=== PATIENT | male | born 1960 | race Caucasian/White ===

== ENCOUNTER 2018-08-07 11:39 | Outpatient (CLI) | payer OTHER ==
--- NOTE | 2018-08-07 13:44 | XRAY Report ---
Reason: PAIN IN RIGHT KNEE, PAIN IN LEFT KNEE Procedure Date: 08/07/2018 Accession Number: [id number] / [id number] Procedure: XR - Knee 3 View RT CPT Code: FULL RESULT: EXAM: RIGHT KNEE RADIOGRAPHY EXAM DATE: 08/07/2018 12:58 PM. CLINICAL HISTORY: PAIN IN RIGHT KNEE, PAIN IN LEFT KNEE. COMPARISON: KNEE 3 VIEW LT 08/07/2018 12:46 PM. TECHNIQUE: 2 views. FINDINGS: Bones: Normal. No fractures or bone lesions. Joints: Small joint effusion. No subluxation. Moderate narrowing of the medial weightbearing compartment. Soft Tissues: Normal. No soft tissue swelling. IMPRESSION: Small joint effusion and degenerative changes as above. RADIA
--- NOTE | 2018-08-07 14:00 | XRAY Report ---
Reason: PAIN IN RIGHT KNEE, PAIN IN LEFT KNEE Procedure Date: 08/07/2018 Accession Number: [id number] / [id number] Procedure: XR - Knee 3 View LT CPT Code: FULL RESULT: EXAM: LEFT KNEE RADIOGRAPHY EXAM DATE: 08/07/2018 12:57 PM. CLINICAL HISTORY: Pain in right knee, pain in left knee. COMPARISON: None. TECHNIQUE: 3 views. FINDINGS: Bones: Normal. No fractures or bone lesions. Joints: Mild narrowing of the weightbearing compartments. No joint effusion. No subluxation. Soft Tissues: Normal. No soft tissue swelling. IMPRESSION: Mild degenerative changes, less as compared to the right. RADIA
== END 2018-08-07 11:40 | disposition home or self-care (01) ==
LOC: DI 11:39
PROVIDERS: ATTEND Family Medicine
DX: M17.0 Bilateral primary osteoarthritis of knee (principal); M25.461 Effusion, right knee

== ENCOUNTER 2021-06-24 07:45 | Day surgery (SDC) | payer OTHER ==
[2021-06-24] MEDS ORDERED: LACTATED RINGERS 1,000 ML IV ONE ×2 (08:35→09:44)
--- NOTE | 2021-06-24 08:35 | ANESTHESIA ---
Pre-Anesthesia VS, & Labs - Diagnosis screening - Procedure colonoscopy Vital Signs: Temp Pulse Resp BP Pulse Ox 36.5 C 60 19 127/96 H 99 06/24/21 08:05 06/24/21 08:05 06/24/21 08:05 06/24/21 08:05 06/24/21 08:05 Height: 5 ft 9 in Weight (kg): 91.6 kg Body Mass Index: 29.8 BMI Classification: Overweight - NPO >8 hours Anes History & Medical History - Anesthetic History Anesthesia Complications: reports: No previous complications Family history of Anesthesia Complications: Denies Family history of Malignant Hyperthermia: Denies - Medical History Cardiovascular: reports: None Pulmonary: reports: None Gastrointestinal: reports: None Urinary: reports: None Neuro: reports: None Musculoskeletal: reports: Rheumatoid arthritis Endocrine/Autoimmune: reports: None Blood Disorders: reports: None Skin: reports: None Smoking Status: Current every day smoker Exam General: Alert, Oriented x3, Cooperative Dental: WNL Mouth Openin Fingerbreadth Neck Mobility: Normal Mallampati classification: II Thyromental Distance: 4-6 cm Respiratory: Lungs clear Cardiovascular: Regular rate Abdomen: Normal bowel sounds Plan Anesthesia Type: Total IV Consent for Procedure(s) Verified and Reviewed: Yes Code Status: Attempt Resuscitation ASA classification: 2-Mild systemic disease Is this case an emergency?: No
[2021-06-24] MEDS ORDERED: PROPOFOL 500 MG/50 ML 500 MG/50 ML VIAL ONE (08:36)
[2021-06-24 10:11] VITALS: BP 133/86
--- NOTE | 2021-06-24 12:43 | ANESTHESIA POST OP EVALUATION ---
Anesthesia Post Eval - Post Anesthesia Eval Vitals: Last Vital Signs Temp 36.5 C 06/24/21 10:09 Pulse 56 L 06/24/21 10:09 Resp 19 06/24/21 10:09 BP 133/86 H 06/24/21 10:09 Pulse Ox 100 06/24/21 10:09 CV Function Including HR & BP: Stable Pain Control: Satisfactory Nausea & Vomiting: Negative Mental Status: Baseline Respiratory Status: Airway Patent Hydration Status: Satisfactory Anesthesia Complications: None
== END 2021-06-24 07:46 | disposition home or self-care (01) ==
LOC: SDS 07:45
PROVIDERS: ATTEND Surgery
PROC: 0DBL8ZZ Excision of Transverse Colon, Via Natural or Artificial Opening Endoscopic (ICD-10-PCS; 2021-06-24)
PROC: 0DBP8ZZ Excision of Rectum, Via Natural or Artificial Opening Endoscopic (ICD-10-PCS; 2021-06-24)
PROC: 0DBN8ZZ Excision of Sigmoid Colon, Via Natural or Artificial Opening Endoscopic (ICD-10-PCS; 2021-06-24)
PROC: 0DBK8ZZ Excision of Ascending Colon, Via Natural or Artificial Opening Endoscopic (ICD-10-PCS; principal; 2021-06-24 09:00)
DX: Z12.11 Encounter for screening for malignant neoplasm of colon (principal); D12.3 Benign neoplasm of transverse colon; D12.2 Benign neoplasm of ascending colon; D12.5 Benign neoplasm of sigmoid colon; K62.1 Rectal polyp; K64.8 Other hemorrhoids; F17.200 Nicotine dependence, unspecified, uncomplicated
CPT/HCPCS: 45380; 45385; J7120

== ENCOUNTER 2023-01-12 10:31 | Outpatient (CLI) | payer OTHER ==
--- NOTE | 2023-01-14 16:10 | Ultrasound Report ---
ULTRASOUND OF LEFT AXILLA: 01/12/2023 CLINICAL: Palpable left axilla lump. No prior exams were available for comparison. Color flow and real-time ultrasound of the left axilla were performed. Martin scale images of the real -time examination were reviewed. There is a 7.5 cm x 5.9 cm x 4.9 cm enlarged lymph node in the left axillary tail. This enlarged lym ph node is hypoechoic with no fatty hilum. This correlates as palpated. Color flow imaging demonstr ates that there is vascularity present. IMPRESSION: SUSPICIOUS OF MALIGNANCY The 7.5 cm x 5.9 cm x 4.9 cm enlarged lymph node is suspicious of malignancy. Suspect lymphoma. An ultrasound guided biopsy is recommended. Exam findings were discussed with the patient by Dr. Elizalde. This exam was interpreted at Station ID: [id number]. Electronically Signed By: Gurpreet Mirza M.D. slc/:01/12/2023 12:33:51 Ultrasound BI-RADS: 4 Suspicious for malignancy BI-RADS CATEGORY: (4) - 4 Biopsy [id number] Immediate follow-up LATERALITY: (L)
== END 2023-01-12 10:32 | disposition home or self-care (01) ==
LOC: DI 10:31
PROVIDERS: ATTEND Registered Nurse
DX: R59.0 Localized enlarged lymph nodes (principal)

== ENCOUNTER 2023-02-18 11:05 | Outpatient (CLI) | payer OTHER ==
[2023-02-18] MEDS ORDERED: iohexoL-300 100 ML VIAL IVP ONE (15:23)
[2023-02-18] MEDS ORDERED: BARIUM SULFATE 1,900 ML BOTTLE RC ONE (15:24)
--- NOTE | 2023-02-18 15:38 | CT Report ---
PROCEDURE: CHEST W INDICATIONS: MALIGNANT LYMPHOMA CONTRAST: 100ml omni 300 TECHNIQUE: After the administration of intravenous contrast, 1 mm axial images were acquired from the pulmonary apices through the posterior costophrenic angles. Axial 5 mm soft tissue kernel reconstructions were performed as well as 8 mm axial MIP and coronal and sagittal 5 mm reformations. For radiation dose reduction, the following was used: automated exposure control, adjustment of mA and/or kV according to patient size. COMPARISON: Same day CT abdomen pelvis with IV contrast. Left axillary biopsy ultrasound 01/24/2023. Left axillary ultrasound 01/12/2023. FINDINGS: Image quality: Excellent. Lungs and pleura: Moderate emphysematous change. Mild honeycombing at the lower lobes. Left upper lob e fissural pulmonary nodule measuring 0.3 cm, (3/17). No mass. Central airways are clear. The pleural fusion. No pneumothorax. Mediastinum: Heart size is normal. No pericardial effusion. No large vessel abnormality. Small right hilar lymph node measuring 1.1 cm, (2/25). Chest wall and lower neck: Thyroid is unremarkable. No supraclavicular adenopathy by size. Left axill charanjit lymph node measuring 4.5 x 1.8 cm, (2/19). This measures 4.6 cm in the craniocaudal dimension, (5 /18). (This previously measured 7.7 x 6.8 x 3.7 cm on ultrasound 01/24/2023) Bones: No aggressive osseous abnormality. Upper Abdomen: See separately dictated CT abdomen pelvis. IMPRESSION: 1. Left axillary lymph node measuring 1.8 cm short axis diameter is decreased compared to ultrasound 01/24/2023. 2. Right hilar node measuring 1.1 cm. 3. Mild pulmonary fibrosis. Moderate emphysematous change. Reviewed by: Gurpreet Mirza MD on 02/18/2023 3:36 PM PDT Approved by: Gurpreet Mirza MD on 02/18/2023 3:36 PM PDT Station ID: [id number]
--- NOTE | 2023-02-18 15:42 | CT Report ---
PROCEDURE: ABDOMEN/PELVIS W INDICATIONS: MALIGNANT LYMPHOMA CONTRAST: 100ml omni 300 TECHNIQUE: After the administration of oral and intravenous contrast, 5 mm thick sections acquired from the diap hragms to the symphysis. 5 mm thick coronal and sagittal reformats were acquired. For radiation dos e reduction, the following was used: automated exposure control, adjustment of mA and/or kV accordin g to patient size. COMPARISON: Same-day CT chest. FINDINGS: Image quality: Excellent. Lung bases and heart: See separately dictated same-day CT chest. Pulmonary fibrosis and emphysematous change. Gynecomastia. Liver: No solid mass. Gallbladder and biliary tree: No radiopaque stones or wall thickening. No biliary dilation. Spleen: No splenomegaly. Spleen measures 6.4 cm. Pancreas: No pancreatic ductal dilation. Adrenals: No adrenal nodule. Kidneys and ureters: No hydronephrosis. No renal cystic lesion which requires follow up. No solid mas s. Bowel and peritoneum: No bowel distension. No pathologic free fluid. Diverticulosis without evidence of diverticulitis. Normal appendix. Lymph nodes: No central or retroperitoneal adenopathy. Vessels: No infrarenal aortic aneurysm. Circumaortic left renal vein. PELVIS Reproductive organs: Prostatomegaly. Bladder: No abnormal wall thickening, accounting for underdistention. Pelvic lymph nodes: No pelvic adenopathy by size criteria. Bones: No aggressive osseous abnormality. Other: No significant ventral or inguinal hernia. IMPRESSION: No mass. No adenopathy in the abdomen or pelvis. No splenomegaly. Reviewed by: Gurpreet Mirza MD on 02/18/2023 3:41 PM PDT Approved by: Gurpreet Mirza MD on 02/18/2023 3:41 PM PDT Station ID: [id number]
== END 2023-02-18 11:06 | disposition home or self-care (01) ==
LOC: DI 11:05
PROVIDERS: ATTEND Registered Nurse
DX: C85.90 Non-Hodgkin lymphoma, unspecified, unspecified site (principal); J84.10 Pulmonary fibrosis, unspecified; J43.9 Emphysema, unspecified
CPT/HCPCS: 71260; 74177; A9270; Q9967

== ENCOUNTER 2023-02-21 09:51 | Day surgery (SDC) | payer OTHER ==
[2023-02-21] MEDS ORDERED: LACTATED RINGERS 1,000 ML IV ONE (10:21)
[2023-02-21] MEDS ORDERED: LIDOCAINE 1%-EPI 1:100000 20 ML MDV ONE (10:34)
[2023-02-21] MEDS ORDERED: BUPIVACAINE 0.5% PF 10 ML VIAL ONE (10:34)
--- NOTE | 2023-02-21 10:51 | ANESTHESIA ---
Pre-Anesthesia VS, & Labs - Diagnosis B-Cell lymphoma - Procedure Placement of port Vital Signs: Temp Pulse Resp BP Pulse Ox O2 Flow Rate 36.2 C L 56 L 19 122/90 H 96 02/21/23 10:22 02/21/23 10:22 02/21/23 10:22 02/21/23 10:22 02/21/23 10:22 Height: 5 ft 9 in Weight (kg): 88.45 kg Body Mass Index: 28.8 BMI Classification: Overweight - NPO >8 hours Home Medications and Allergies Home Medications: Ambulatory Orders Prednisone [Manfred] 10 mg PO DAILY 02/18/23 Adalimumab [Humira Pen] 0.8 ml INJ UD 06/24/21 metHOTREXate sodium [Trexall] 1 tab DAILY 06/24/21 Prednisone [Manfred] 10 mg PO DAILY 02/18/23 Allergies/Adverse Reactions: Allergies Allergy/AdvReac Type Severity Reaction Status Date / Time No Known Drug Allergies Allergy Verified 02/21/23 10:24 Anes History & Medical History - Anesthetic History Anesthesia Complications: reports: No previous complications - Medical History Cardiovascular: reports: None Pulmonary: reports: Other (reports snoring) Gastrointestinal: reports: None Urinary: reports: None Neuro: reports: None Musculoskeletal: reports: Rheumatoid arthritis Endocrine/Autoimmune: reports: None Blood Disorders: reports: None Skin: reports: None Smoking Status: Current every day smoker (1pk per day for 45 years) Psychosocial: reports: Alcohol History of Cancer?: Yes (B Cell lymphoma) - Surgical History General: reports: Colonoscopy Eyes Ears Nose Throat (EENT): reports: Tonsil/Adenoidectomy Exam General: Alert, Oriented x3, Cooperative, No acute distress Dental: Poor dentition Mouth Openin Fingerbreadth Neck Mobility: Normal Mallampati classification: III Thyromental Distance: 4-6 cm Mental/Cognitive Status: Alert/Oriented X3, Normal for patient Plan Anesthesia Type: General, Total IV Consent for Procedure(s) Verified and Reviewed: Yes Code Status: Attempt Resuscitation ASA classification: 3-Severe systemic disease Is this case an emergency?: No
[2023-02-21] MEDS ORDERED: SODIUM CHLORIDE 0.9% 100 ML BAG IV ONE (11:00)
[2023-02-21] MEDS ORDERED: BUPIVACAINE 0.5% PF 30 ML VIAL SUBQ ONE (11:00)
[2023-02-21] MEDS ORDERED: LIDOCAINE MPF 2%-EPI 1:200000 20 ML VIAL SUBQ ONE (11:00)
[2023-02-21] MEDS ORDERED: PROPOFOL 500 MG/50 ML 500 MG/50 ML VIAL ONE (11:07)
[2023-02-21] MEDS ORDERED: fentaNYL 100 MCG/2 ML VIAL ONE (11:08)
[2023-02-21] MEDS ORDERED: MIDAZOLAM 2 MG/2 ML VIAL ONE (11:08)
[2023-02-21] MEDS ORDERED: ceFAZolin 2 GM VIAL ONE (11:15)
[2023-02-21] MEDS ORDERED: ACETAMINOPHEN 500 MG TABLET PO ONE (11:15)
[2023-02-21] MEDS ORDERED: ACETAMINOPHEN 500 MG TABLET PO PRN (12:44)
[2023-02-21] MEDS ORDERED: oxyCODONE 5 MG TABLET PO PRN (12:44)
[2023-02-21] MEDS ORDERED: IBUPROFEN 600 MG TABLET PO PRN (12:44)
[2023-02-21] MEDS ORDERED: ONDANSETRON 4 MG/2 ML VIAL IVP PRN (12:44)
--- NOTE | 2023-02-21 12:49 | OPERATIVE REPORT ---
Operative Report - General Procedure Date: 02/21/23 Planned Procedure: Portacatheter placement Pre-Op Diagnosis: Lymphoma Procedure Performed: Portacatheter placement, right internal jugular vein, with ultrasound and fluoroscopy guidance Post Op Diagnosis: Lymphoma - Procedure Note Primary Surgeon: Dasha Luna MD Anesthesia Provider: Dylan Alba CRNA Anesthesia Technique: General LMA, Local Estimated Blood Loss (mL): 5 Indications: The patient was diagnosed with lymphoma. His medical oncologist has requested a portacatheter for chemotherapy administration. I discussed the risks, benefits, and alternatives of portacatheter placement with the patient prior to his procedure today. Risks include but are not limited to bleeding, infection, damage to surrounding structures including pneumothorax, dysfunction or infection of the port requiring removal, and the need for further surgeries or procedures. The patient voiced understanding, his questions were answered, and he wished to proceed. A consent was signed by the patient prior to surgery. Findings: 1. Patent right internal jugular vein 2. Portacatheter flushes and draws easily 3. Portacatheter loaded with 1.5 mL 1000 units/mL heparin Complications: None - Other Other Information/Narrative: The patient was taken to the operative suite and placed in the supine position preoperative ERAS medications given. Preoperative antibiotics given. MAC anesthesia was induced to the appropriate level of consciousness. An ultrasound was used to verify the right internal jugular vein was widely patent. The patien t was then prepped and draped in the usual, sterile fashion. Next, a sterile ultrasound probe was used to visualize the right internal jugular vein local anesthetic was injected into the skin and subcutaneous tissues overlying this vessel and an 11 blade scalpel was used to make a small skin kaylah. Next, under direct ultrasound guidance, a Cook needle was used to gain access to the right internal jugular vein. This was successful on the first attempt. There was excellent return of dark red nonpulsatile blood. A guidewire was passed through the Cook needle without resistance. Fluoroscopy was used to verify the position of the wire. Ultrasound was also used to verify the position of the wire. Next, attention was turned to the chest. The location was chosen on the right anterior chest wall for the portacatheter to sit. The skin and subcutaneous tissues in this area were anesthetized with local as was the path which the catheter would follow up to the neck incision. A 15 blade scalpel was used to make a 2 cm incision in the which was carried down through the skin and subcutaneous tissues to the level of the clavipectoral fascia. A pocket was made with blunt dissection to accommodate the port. Port easily fit within the pocket. 2 interrupted sutures of 3-0 PDS were placed through the port to tack it to the clavipectoral fascia. These were tied into place and then the port was tunneled from the inferior chest wall incision to the superior neck incision. Next, the catheter was cut to the appropriate length, 22cm, under direct fluoroscopic guidance. A dilator and sheath were passed over the guidewire under direct fluoroscopic guidance and the dilator and guidewire were removed leaving only the breakaway sheath in place. The catheter was passed through the sheath and the sheath was broken away. The catheter was the only thing that remained within the vessel. Fluoroscopy confirmed that the catheter tip was in good position and that there were no kinks at the neck. The catheter flushed and cheryl easily. Next, 3-0 Vicryl was used in an interrupted fashion to reapproximate the deep dermal tissues at the chest incision. Then, 4-0 Monocryl was used in an interrupted subcuticular fashion to reapproximate the skin at the neck incision and in a running subcuticular fashion to reapproximate the skin at the chest incision. A sterile dressing of skin glue was placed. The port was flushed with 1.5 mL 1000 units/mL heparinized saline. The patient tolerated the procedure well and there were no complications. A postoperative chest x-ray is pending at this time.
--- NOTE | 2023-02-21 12:57 | XRAY Report ---
PROCEDURE: OR Port-A-Cath INDICATIONS: PORT PLACEMENT CONTRAST: None FLUORO TIME: 0.1 MIN TECHNIQUE: Real time fluoroscopy was performed of the thorax. COMPARISON: None. FINDINGS: Fluoroscopic guidance utilized for a right chest wall port placement. The tip projects over the low S VC. IMPRESSION: Fluoroscopic guidance. Reviewed by: Juan R Coronado on 02/21/2023 12:56 PM PDT Approved by: Juan R Coronado on 02/21/2023 12:56 PM PDT Station ID: [id number]
[2023-02-21 13:04] VITALS: BP 112/78; O2SAT 98
--- NOTE | 2023-02-21 13:08 | XRAY Report ---
PROCEDURE: Chest for Line Placement INDICATIONS: PAC placement TECHNIQUE: One view of the chest was acquired. COMPARISON: None. FINDINGS: Surgical changes and devices: Right chest wall port tip projects over the mid SVC. Lungs and pleura: No pleural effusions or pneumothorax. Lungs are clear. Mediastinum: Mediastinal contours appear normal. Heart size is normal. Bones and chest wall: No suspicious bony lesions. Overlying soft tissues appear unremarkable. IMPRESSION: Right chest wall port tip projects over the mid SVC. No pneumothorax. Reviewed by: Juan R Coronado on 02/21/2023 1:07 PM PDT Approved by: Juan R Coronado on 02/21/2023 1:07 PM PDT Station ID: [id number]
[2023-02-21] MEDS ORDERED: oxyCODONE 5 MG TABLET ONE (13:15)
--- NOTE | 2023-02-21 19:57 | ANESTHESIA POST OP EVALUATION ---
Anesthesia Post Eval - Post Anesthesia Eval Vitals: Last Vital Signs Temp 36.1 C L 02/21/23 12:36 Pulse 77 02/21/23 12:56 Resp 14 02/21/23 12:56 BP 112/78 02/21/23 12:56 Pulse Ox 98 02/21/23 12:56 O2 Flow Rate CV Function Including HR & BP: Stable Pain Control: Satisfactory Nausea & Vomiting: Negative Mental Status: Baseline Respiratory Status: Airway Patent Hydration Status: Satisfactory Anesthesia Complications: None
== END 2023-02-21 09:52 | disposition home or self-care (01) ==
LOC: SDS 09:51
PROVIDERS: ATTEND Surgery
DX: C85.10 Unspecified B-cell lymphoma, unspecified site (principal); G47.33 Obstructive sleep apnea (adult) (pediatric); F17.210 Nicotine dependence, cigarettes, uncomplicated
CPT/HCPCS: 36561; A9270; C1788; J7120

== ENCOUNTER 2023-02-22 14:20 | Outpatient (CLI) | payer OTHER | END 2023-02-22 14:21 | disposition home or self-care (01) | LOC: DI 14:20 | PROVIDERS: ATTEND Internal Medicine | DX: Z01.810 Encounter for preprocedural cardiovascular examination (principal); C83.34 Diffuse large B-cell lymphoma, lymph nodes of axilla and upper limb | CPT/HCPCS: 93306 ==

== ENCOUNTER 2023-04-05 16:08 | Emergency (ER) | payer OTHER ==
--- NOTE | 2023-04-05 17:04 | ED Physician Documentation ---
PD HPI NECK PAIN - Stated complaint Stated Complaint: NECK PX - Chief complaint Chief Complaint: General - History obtained from History obtained from: Patient - History of Present Illness Timing - onset: How many days ago (2-3) Timing - duration: Days (2-3) Timing - details: Gradual onset Location: Right, Other (area of pain is anterior/lateral right neck along SCM muscle area.) Quality: Pain, Aching Associated symptoms: No: Fever, Weakness, Numbness Worsened by: Movement, Palpation Contributing factors: Other (has right chest port in place about 3 months.). No: Lifting, Twisting, Trauma Similar symptoms before: Has not had sx before Recently seen: Clinic (03/23/23 for chemo infusion. DUe again next week.) Review of Systems Constitutional: denies: Fever, Chills Eyes: denies: Decreased vision Neurologic: denies: Focal weakness, Numbness PD PAST MEDICAL HISTORY - Past Medical History Past Medical History: Yes Cardiovascular: Hypertension Respiratory: Other Neuro: None Endocrine/Autoimmune: None GI: None : None HEENT: None Psych: None Musculoskeletal: Rheumatoid arthritis Derm: None - Past Surgical History Past Surgical History: Yes General: Colonoscopy HEENT: Tonsil/Adenoidectomy - Present Medications Home Medications: Ambulatory Orders Medication Instructions Recorded Confirmed Adalimumab [Humira Pen] 0.8 ml INJ UD 06/24/21 03/23/23 metHOTREXate sodium [Trexall] 1 tab DAILY 06/24/21 02/16/23 Prednisone [Manfred] 10 mg PO DAILY 02/18/23 03/23/23 Ondansetron [Ondansetron Odt] 8 mg PO Q8H PRN 30 Days #90 tab 02/23/23 Pegfilgrastim [Neulasta] 6 mg SQ DAILY #1 each 02/23/23 Prochlorperazine [Compazine] 5 mg PO Q6H PRN 30 Days #90 tablet 02/23/23 Apixaban [Eliquis] 10 mg PO BID 7 Days #28 tablet 04/05/23 - Allergies Allergies/Adverse Reactions: Allergies Allergy/AdvReac Type Severity Reaction Status Date / Time No Known Drug Allergies Allergy Verified 04/05/23 16:36 - Social History Does the pt smoke?: No Smoking Status: Never smoker Does the pt drink ETOH?: No Does the pt have substance abuse?: No PD ED PE NORMAL - Vitals Vital signs reviewed: Yes - General General: Alert and oriented X 3, No acute distress, Well developed/nourished - HEENT HEENT: PERRL, EOMI, Other (no edema of the face. ) - Neck Neck: Supple, no meningeal sign, No adenopathy, No bruit, Other (right neck with subcut IV line palpable. Port right chest wall without redness/swelling/tender. Right side of neck with mild adenopathy. No abscess/redness. ) - Cardiac Cardiac: RRR, No murmur - Respiratory Respiratory: Clear bilaterally - Derm Derm: Normal color, Warm and dry - Neuro Neuro: Alert and oriented X 3, kit assembler 2-12 intact, No motor deficit, No sensory deficit, Normal speech Results - Vitals Vitals: Vital Signs - 24 hr 04/05/23 04/05/23 04/05/23 16:32 19:04 19:07 Temperature 37 C Heart Rate 74 66 Respiratory 15 19 17 Rate Blood Pressure 135/88 H 145/91 H O2 Saturation 97 99 Oxygen O2 Source Room air - Labs Labs: Laboratory Tests 04/05/23 04/05/23 17:31 17:31 WBC 6.3 RBC 3.83 L Hgb 12.0 L Hct 36.5 L MCV 95.3 H MCH 31.3 H MCHC 32.9 RDW 13.3 Plt Count 402 MPV 9.7 Neut # (Auto) 2.6 Lymph # (Auto) 2.0 Russell # (Auto) 1.3 H Eos # (Auto) 0.1 Baso # (Auto) 0.1 Absolute Nucleated RBC 0.00 Nucleated RBC % 0.0 Sodium 137 Potassium 3.8 Chloride 102 Carbon Dioxide 29 Anion Gap 6.0 BUN 9 Creatinine 0.7 Estimated GFR (MDRD) 114 Glucose 109 H Calcium 9.4 Magnesium 1.9 Total Bilirubin 0.2 AST 9 L ALT 14 Alkaline Phosphatase 64 Total Protein 7.0 Albumin 4.3 Globulin 2.7 Albumin/Globulin Ratio 1.6 Lipase 12 - Rads (name of study) Right upper ext US Relevant Findings:: Other (US Tech - prelim showing large right IJ thrombus. ) PD Medical Decision Making - ED course Complexity details: reviewed results, re-evaluated patient, considered differential (Patient with pain on the right side of the neck and medial clavicle area. No redness of the skin. No visual changes or focal weaknesses. He called his oncologist however and there was concern for infection or clot and referred the patient to the ER.), d/w patient, d/w interventional sale consultant (Pt's Oncology is Sung Arnett, will talk with oncall. Dispatcher [employer] contacted back and agreed on Apixiban 10 mg bid x 7 days then to change to 5 mg BID. ) Reviewed Lab Results: basic labs are okay. Normal WBC. US showing right IJ thrombus. ED course: The patient has a history of lymphoma some of which is on the right side of the neck but had been improving. He is undergoing chemotherapy every 21 days via a port in the right chest to the right IJ apparently or supraclavicular. He has had some feeling of swelling and tenderness to the area. No redness at the sign of the port. Last last chemotherapy 2 weeks ago he states that he did have some difficulty drawing blood out from the port but were able to infuse. He denies swelling or pain in the right arm or any numbness in the right arm. No fever or chills. We can get CBC and blood cultures from the port line to assess for infection there. No skin signs of infection. Will get an ultrasound of the right subclavian and upper extremity to look for clots at the site. Departure - Departure Disposition: 01 Home, Self Care Clinical Impression: Acute internal jugular vein thrombosis Qualifiers: Laterality: right Qualified Code(s): I82.C11 - Acute embolism and thrombosis of right internal jugular vein Condition: Stable Record reviewed to determine appropriate education?: Yes Instructions: ED DVT Follow-Up: SUNG ARNETT MD [Provider Admit Priv/Credential] - Prescriptions: Apixaban [Eliquis] 10 mg PO BID 7 Days #28 tablet Comments: You do have some clot formation in the internal jugular around the catheter. Typically the catheter will be kept in place while we treat the clot with the anticoagulant medication. Commonly used is apixaban (Eliquis). It is initiated at 10 mg twice a day for 7 days and then continued at 5 mg twice a day after that. I wrote prescription for the first 7 days worth. Presumably would be seen next week or talk with your oncologist about the further continuation of the medication prescription after that. Call your oncologist tomorrow to update. I have a call placed out for them tonight to give the results but they have not called back as yet. I sent a prescription to your preferred pharmacy but you were given a first dose here in the ER for this evening. I would suggest Tylenol 650 mg 4 times daily for pain. You can use some warm towels or compresses to the area to to help soften the blood clot a little bit and help resorption. Forms: PCP List Discharge Date/Time: 04/05/23 19:34
[2023-04-05 17:44] LABS: BASOPHILS # (AUTO) 0.1 10^3/uL (0.0-0.1); BASOPHILS % (AUTO) 1.8 %; EOSINOPHILS # (AUTO) 0.1 10^3/uL (0.0-0.7); EOSINOPHILS % (AUTO) 2.2 %; HCT - HEMATOCRIT 36.5 % (42.0-52.0); MEAN CORPUSCULAR HEMOGLOBIN 31.3 pg (27.0-31.0); MEAN CORPUSCULAR HGB CONC 32.9 g/dL (32.0-36.0); MEAN CORPUSCULAR VOLUME 95.3 fL (80.0-94.0); MEAN PLATELET VOLUME 9.7 fL (7.4-11.4); MONOCYTES # (AUTO) 1.3 10^3/uL (0.0-1.0); MONOCYTES % (AUTO) 20.3 %; NEUTROPHILS # (AUTO) 2.6 10^3/uL (1.5-6.6); NEUTROPHILS % (AUTO) 42.1 %; PLT - PLATELET COUNT 402 10^3/uL (130-450); RED BLOOD COUNT 3.83 10^6/uL (4.70-6.10); RED CELL DISTRIBUTION WIDTH 13.3 % (12.0-15.0); WHITE BLOOD COUNT 6.3 x10^3/uL (4.8-10.8)
[2023-04-05 17:57] LABS: ALBUMIN 4.3 g/dL (3.2-5.5); ALBUMIN/GLOBULIN RATIO 1.6 (1.0-2.2); BILIRUBIN,TOTAL 0.2 mg/dL (0.2-1.0); CALCIUM 9.4 mg/dL (8.5-10.3); CREATININE 0.7 mg/dL (0.6-1.3); MAGNESIUM 1.9 mg/dL (1.7-2.3); POTASSIUM 3.8 mmol/L (3.5-4.5)
[2023-04-05] MEDS ORDERED: APIXABAN 5 MG TABLET PO STA (18:58)
[2023-04-05 19:13] VITALS: BP 145/91; O2SAT 99
--- NOTE | 2023-04-05 19:31 | Ultrasound Report ---
PROCEDURE: Duplex Ext Veins Right INDICATIONS: right side neck shoulder pain, right chest port TECHNIQUE: Real-time imaging, as well as color and pulse Doppler interrogation, were performed of the lower extr emity deep veins from the inguinal ligament to the popliteal fossa. Attempted visualization of the ca lf veins was performed. COMPARISON: None. FINDINGS: Deep venous thrombosis of the left internal jugular vein, which is noncompressible. The por t inserts within the thrombosed segment. Subclavian vein, axillary, brachial, basilic and cephalic ve ins are clear from thrombus. IMPRESSION: Deep venous thrombosis of the right internal jugular vein. Agree with preliminary interpretation discussed between the sonographic technologist and Dr. Reyes. Reviewed by: Juan R Coronado on 04/05/2023 7:29 PM [facility] Approved by: Juan R Coronado on 04/05/2023 7:29 PM [facility] Station ID: [id number]
== END 2023-04-05 19:34 | disposition home or self-care (01) ==
LOC: ED 16:08
DX: I82.C11 Acute embolism and thrombosis of right internal jugular vein (principal); C85.91 Non-Hodgkin lymphoma, unspecified, lymph nodes of head, face, and neck; Z79.899 Other long term (current) drug therapy
CPT/HCPCS: 36415; 80053; 83690; 83735; 85025; 87040; 93971; 99283; 99285; A9270

== ENCOUNTER 2023-04-14 11:23 | Day surgery (SDC) | payer OTHER ==
--- NOTE | 2023-04-14 13:00 | XRAY Report ---
PROCEDURE: Chest for Line Placement INDICATIONS: PICC LINE PLACEMENT TECHNIQUE: One view of the chest was acquired. COMPARISON: 02/21/2023. FINDINGS: Surgical changes and devices: Right chest Port-A-Cath line has retracted significantly, and now like ly coils in the inferior aspect of the right internal jugular vein. Left arm PICC line tip projects t o the superior vena cava. Lungs and pleura: No pleural effusions or pneumothorax. Lungs are clear. Mediastinum: Mediastinal contours appear normal. Heart size is normal. Bones and chest wall: No suspicious bony lesions. Overlying soft tissues appear unremarkable. IMPRESSION: 1. Port-A-Cath has retracted significantly, and appears to coil in the right internal jugular vein. 2. Interval PICC line placement with its tip projecting to the superior vena cava. Reviewed by: Lj Salazar MD on 04/14/2023 12:59 PM PST Approved by: Lj Salazar MD on 04/14/2023 12:59 PM PST Station ID: [id number]
[2023-04-14 13:02] VITALS: BP 130/79; O2SAT 97
--- NOTE | 2023-04-14 14:19 | ANESTHESIA PROCEDURE NOTE ---
Anesth Central Line Template - Central Line Central Line Preparation: Consent Obtained, Time out completed, Ultrasound used, Sterile prep and drape Central line location: Left Basilic Central line type: PICC Double Lumen Central line catheter tip site resides: Superior vena cava (SVC) (Trimmed to 47cm, none exposed, tip in SVC) Central line aftercare: Secured (statlock), Placement confirmed (by CXR to be SVC), No pneumothorax, No complications, Bundle checklist complete, Pt tolerated well
== END 2023-04-14 11:24 | disposition home or self-care (01) ==
LOC: SDS 11:23
PROVIDERS: ATTEND Nurse Anesthetist, Certified Registered
DX: C85.10 Unspecified B-cell lymphoma, unspecified site (principal)
CPT/HCPCS: 36569

== ENCOUNTER 2023-04-22 06:22 | Day surgery (SDC) | payer OTHER ==
[2023-04-22] MEDS ORDERED: LACTATED RINGERS 1,000 ML IV ONE ×2 (06:46→08:10)
[2023-04-22] MEDS ORDERED: MIDAZOLAM 2 MG/2 ML VIAL ONE (07:06)
[2023-04-22] MEDS ORDERED: PROPOFOL 200 MG/20 ML VIAL IVP ONE ×2 (07:07→07:43)
[2023-04-22] MEDS ORDERED: fentaNYL 100 MCG/2 ML VIAL ONE (07:07)
--- NOTE | 2023-04-22 07:11 | ANESTHESIA ---
Pre-Anesthesia VS, & Labs - Diagnosis non functioning port a cath - Procedure port a cath removal Vital Signs: Temp Pulse Resp BP Pulse Ox O2 Flow Rate 36.1 C L 87 14 110/87 H 95 04/22/23 06:47 04/22/23 06:47 04/22/23 06:47 04/22/23 06:47 04/22/23 06:47 Height: 5 ft 9 in Weight (kg): 83.6 kg Body Mass Index: 27.2 BMI Classification: Overweight - NPO >8 hours - Lab Results Lab results reviewed: Yes Home Medications and Allergies Adalimumab [Humira Pen] 0.8 ml INJ UD 06/24/21 metHOTREXate sodium [Trexall] 1 tab DAILY 06/24/21 Prednisone [Manfred] 10 mg PO DAILY 02/18/23 Allergies/Adverse Reactions: Allergies Allergy/AdvReac Type Severity Reaction Status Date / Time No Known Drug Allergies Allergy Verified 04/05/23 16:36 Anes History & Medical History - Anesthetic History Anesthesia Complications: reports: No previous complications Family history of Anesthesia Complications: Denies Family history of Malignant Hyperthermia: Denies - Medical History Cardiovascular: reports: Hypertension Pulmonary: reports: Other Gastrointestinal: reports: None Urinary: reports: None Neuro: reports: None Musculoskeletal: reports: Rheumatoid arthritis Endocrine/Autoimmune: reports: None Blood Disorders: reports: None Skin: reports: None Smoking Status: Never smoker - Surgical History General: reports: Colonoscopy, Other Eyes Ears Nose Throat (EENT): reports: Tonsil/Adenoidectomy Exam General: Alert, Oriented x3, Cooperative Dental: Poor dentition Mouth Openin Fingerbreadth Neck Mobility: Normal Mallampati classification: II Thyromental Distance: 4-6 cm Respiratory: Lungs clear, Normal breath sounds, No respiratory distress Cardiovascular: Regular rate Neurological: Normal speech Mental/Cognitive Status: Alert/Oriented X3 Cognitive Status: Within normal limits Plan Anesthesia Type: MAC Consent for Procedure(s) Verified and Reviewed: Yes Code Status: Attempt Resuscitation ASA classification: 3-Severe systemic disease Is this case an emergency?: No
[2023-04-22] MEDS ORDERED: ceFAZolin 1 GM VIAL ONE (07:17)
[2023-04-22 07:21] LABS: BASOPHILS # (AUTO) 0.1 10^3/uL (0.0-0.1); BASOPHILS % (AUTO) 2.3 %; EOSINOPHILS # (AUTO) 0.2 10^3/uL (0.0-0.7); EOSINOPHILS % (AUTO) 6.8 %; HCT - HEMATOCRIT 38.6 % (42.0-52.0); HGB - HEMOGLOBIN 12.9 g/dL (14.0-18.0); LYMPHOCYTES # (AUTO) 1.4 10^3/uL (1.5-3.5); LYMPHOCYTES % (AUTO) 44.2 %; MEAN CORPUSCULAR HEMOGLOBIN 31.2 pg (27.0-31.0); MEAN CORPUSCULAR HGB CONC 33.4 g/dL (32.0-36.0); MEAN CORPUSCULAR VOLUME 93.2 fL (80.0-94.0); MEAN PLATELET VOLUME 10.8 fL (7.4-11.4); MONOCYTES # (AUTO) 0.5 10^3/uL (0.0-1.0); MONOCYTES % (AUTO) 14.5 %; NEUTROPHILS % (AUTO) 31.9 %; PLT - PLATELET COUNT 356 10^3/uL (130-450); RED BLOOD COUNT 4.14 10^6/uL (4.70-6.10); RED CELL DISTRIBUTION WIDTH 13.2 % (12.0-15.0); WHITE BLOOD COUNT 3.1 x10^3/uL (4.8-10.8)
[2023-04-22] MEDS ORDERED: LIDOCAINE 2%-EPI 1:100000 20 ML MDV ONE (07:22)
[2023-04-22] MEDS ORDERED: BUPIVACAINE 0.5% PF 10 ML VIAL ONE (07:22)
[2023-04-22 07:27] LABS: PT - PROTHROMBIN TIME 11.5 secs (9.9-12.6)
[2023-04-22 07:28] LABS: CALCIUM 9.6 mg/dL (8.5-10.3); CREATININE 0.7 mg/dL (0.6-1.3); POTASSIUM 4.2 mmol/L (3.5-4.5)
[2023-04-22] MEDS ORDERED: LIDOCAINE 2%-EPI 1:100000 20 ML MDV SUBQ ONE ×2 (07:48)
[2023-04-22] MEDS ORDERED: BUPIVACAINE 0.5% PF 10 ML VIAL IM ONE (07:49)
[2023-04-22] MEDS ORDERED: BUPIVACAINE 0.5% PF 10 ML VIAL SUBQ ONE (07:49)
--- NOTE | 2023-04-22 08:25 | ANESTHESIA POST OP EVALUATION ---
Anesthesia Post Eval - Post Anesthesia Eval Vitals: Last Vital Signs Temp 36.6 C 04/22/23 08:12 Pulse 76 04/22/23 08:12 Resp 16 04/22/23 08:12 BP 104/84 H 04/22/23 08:12 Pulse Ox 98 04/22/23 08:12 O2 Flow Rate CV Function Including HR & BP: Stable Pain Control: Satisfactory Nausea & Vomiting: Negative Mental Status: Baseline Respiratory Status: Airway Patent Hydration Status: Satisfactory Anesthesia Complications: None
[2023-04-22 08:27] VITALS: O2SAT 98
[2023-04-22 08:56] VITALS: BP 108/82
--- NOTE | 2023-04-22 08:59 | OPERATIVE REPORT ---
Operative Report - Other Other Information/Narrative: PROCEDURE DATE: 04/22/2023 PREOPERATIVE DIAGNOSIS: Long is a 62 year old male with a non-functional right chest wall central venous infusion port. POSTOPERATIVE DIAGNOSIS: Long is a 62 year old male with a non-functional right chest wall central venous infusion port. NAME OF PROCEDURE: Removal of right chest wall central venous infusion port. SURGEON: Pineda Bradshaw MD ANIMAL DOCTOR SURGEON: None ANESTHESIA: Local with IV sedation (MAC) COMPLICATIONS: None ESTIMATED BLOOD LOSS: 2 ml DRAINS: None Specimen: Mediport with intact catheter DESCRIPTION OF OPERATION IS FOLLOWS: After consent for the procedure was obtained, the patient was brought to the operating room, where a surgical time- out was performed, indicating the patient and the procedure to be performed. The right chest wall was prepped with chloroprep and draped in a sterile fashion. 1% lidocaine was used for local anesthesia. An incision was made in the previous chest wall scar and the chest wall port and catheter was removed with it's cathter intact. The subcutaneous tissue was closed with a running 3-0 Vicryl suture. The skin was approximated with a running 4-0 Monocryl subcuticular suture with steri- strips to reinforce the epidermis. Gauze/Tape was used to cover the site. The patient tolerated the procedure well and was returned to the escobar in stable condition.
== END 2023-04-22 06:23 | disposition home or self-care (01) ==
LOC: SDS 06:22
PROVIDERS: ATTEND Surgery
DX: T82.594A Other mechanical complication of infusion catheter, initial encounter (principal); I10 Essential (primary) hypertension
CPT/HCPCS: 36415; 36590; 80048; 85025; 85610; J7120